=== PATIENT | male | born 1980 | race American Indian/Alaskan Native ===

== ENCOUNTER 2020-10-27 10:43 | Emergency (ER) | payer SELFPAY ==
[2020-10-27 11:20] VITALS: BP 130/78
--- NOTE | 2020-10-27 11:55 | Emergency Department Report ---
ED Abdominal Pain HPI - General Chief Complaint: Abdominal Pain Stated Complaint: ABD PAIN/LOW BACK PAIN Time Seen by Provider: 10/27/20 11:26 Source: patient Mode of arrival: Ambulatory Limitations: No Limitations - History of Present Illness Initial Comments: pt is a 40 yo male who presents to the ED with c/o lower abd discomfort and lower back discomfort for a month. he states that occasionally the pain radiates to his legs and his left testicle. he denies any pain currently. he states he has been having constipation and has been taking laxatives with relief. he denies any fever, n/v/d, dysuria, urinary rentention, urinary symptoms, penile discharge, swelling in the testicles, blood in the stool. no pmhx. no allergies to meds. has not seen anyone for this complaint. - Related Data Previous Rx's Medication Instructions Recorded Last Taken Type Famotidine [Pepcid] 40 mg PO QHS #14 tablet 10/27/20 Unknown Rx Mag Hydrox/Aluminum Hyd/Simeth 10 ml PO QID #1 bottle 10/27/20 Unknown Rx [Maalox Advanced Suspension] Naproxen [EC-Naprosyn] 500 mg PO BID PRN #20 tablet. 10/27/20 Unknown Rx Allergies Allergy/AdvReac Type Severity Reaction Status Date / Time No Known Allergies Allergy Unverified 10/27/20 11:19 ED Review of Systems ROS: Stated complaint: ABD PAIN/LOW BACK PAIN Other details as noted in HPI Comment: All other systems reviewed and negative ED Past Medical Hx - Past Medical History Previous Medical History?: No - Surgical History Past Surgical History?: No - Medications Home Medications: Home Medications Medication Instructions Recorded Confirmed Last Taken Type Famotidine [Pepcid] 40 mg PO QHS #14 tablet 10/27/20 Unknown Rx Mag Hydrox/Aluminum Hyd/Simeth 10 ml PO QID #1 bottle 10/27/20 Unknown Rx [Maalox Advanced Suspension] Naproxen [EC-Naprosyn] 500 mg PO BID PRN #20 tablet. 10/27/20 Unknown Rx ED Physical Exam - General Limitations: No Limitations General appearance: alert, in no apparent distress - Head Head exam: Present: atraumatic, normocephalic - Eye Eye exam: Present: normal appearance - ENT ENT exam: Present: mucous membranes moist - Respiratory Respiratory exam: Present: normal lung sounds bilaterally. Absent: respiratory distress, wheezes, rales, rhonchi, stridor, chest wall tenderness, accessory muscle use, decreased breath sounds, prolonged expiratory - Cardiovascular Cardiovascular Exam: Present: regular rate, normal rhythm, normal heart sounds. Absent: systolic murmur, diastolic murmur, rubs, gallop - GI/Abdominal GI/Abdominal exam: Present: soft, normal bowel sounds. 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 Absent: testicular tenderness, urethral discharge, scrotal swelling - Back Exam Back exam: Present: normal inspection, full ROM. Absent: CVA tenderness (R), CVA tenderness (L), paraspinal tenderness, vertebral tenderness - Neurological Exam Neurological exam: Present: alert, oriented X3 - Psychiatric Psychiatric exam: Present: normal affect, normal mood - Skin Skin exam: Present: warm, dry, intact ED Course Vital Signs 10/27/20 11:20 Temperature 98.1 F Pulse Rate 64 Respiratory 16 Rate Blood Pressure 130/78 [Right] O2 Sat by Pulse 100 Oximetry ED Medical Decision Making - Lab Data Result diagrams: 10/27/20 12:22 10/27/20 12:22 Lab Results 10/27/20 10/27/20 10/27/20 Range/Units 12:22 12:22 12:51 WBC 6.4 (4.5-11.0) K/mm3 RBC 4.68 (3.65-5.03) M/mm3 Hgb 14.7 (11.8-15.2) gm/dl Hct 43.7 (35.5-45.6) % MCV 94 (84-94) fl MCH 32 (28-32) pg MCHC 34 (32-34) % RDW 13.5 (13.2-15.2) % Plt Count 255 (140-440) K/mm3 Lymph % (Auto) 48.1 H (13.4-35.0) % Dane % (Auto) 8.6 H (0.0-7.3) % Eos % (Auto) 5.7 H (0.0-4.3) % Baso % (Auto) 1.1 (0.0-1.8) % Lymph # (Auto) 3.1 (1.2-5.4) K/mm3 Dane # (Auto) 0.6 (0.0-0.8) K/mm3 Eos # (Auto) 0.4 (0.0-0.4) K/mm3 Baso # (Auto) 0.1 (0.0-0.1) K/mm3 Seg Neutrophils % 36.5 L (40.0-70.0) % Seg Neutrophils # 2.3 (1.8-7.7) K/mm3 Sodium 138 (137-145) mmol/L Potassium 3.8 (3.6-5.0) mmol/L Chloride 102.0 (98-107) mmol/L Carbon Dioxide 29 (22-30) mmol/L Anion Gap 11 mmol/L BUN 8 L (9-20) mg/dL Creatinine 0.8 (0.8-1.3) mg/dL Estimated GFR > 60 ml/min BUN/Creatinine Ratio 10 % Glucose 96 (75-100) mg/dL Calcium 9.1 (8.4-10.2) mg/dL Total Bilirubin 0.30 (0.1-1.2) mg/dL AST 14 (5-40) units/L ALT 14 (7-56) units/L Alkaline Phosphatase 56 (35-129) units/L Total Protein 6.8 (6.3-8.2) g/dL Albumin 4.3 (3.9-5) g/dL Albumin/Globulin Ratio 1.7 % Lipase 74 H (13-60) units/L Urine Color Yellow (Yellow) Urine Turbidity Clear (Clear) Urine pH 6.0 (5.0-7.0) Ur Specific [place] 1.019 (1.003-1.030) Urine Protein <15 mg/dl (Negative) mg/dL Urine Glucose (UA) Neg (Negative) mg/dL Urine Ketones Neg (Negative) mg/dL Urine Blood Neg (Negative) Urine Nitrite Neg (Negative) Urine Bilirubin Neg (Negative) Urine Urobilinogen < 2.0 (<2.0) mg/dL Ur Leukocyte Esterase Neg (Negative) Urine WBC (Auto) 1.0 (0.0-6.0) /HPF Urine RBC (Auto) 2.0 (0.0-6.0) /HPF Urine Mucus Few /HPF - Radiology Data Radiology results: report reviewed Ordering Physician: RICHARD DELANEY Date of Service: 10/27/20 Procedure(s): XR abdomen 2V Accession Number(s): [id number] cc: RICHARD DELANEY Fluoro Time In Minutes: ABDOMEN 2 VIEWS INDICATION / CLINICAL INFORMATION: constipation, pain. COMPARISON: None available. FINDINGS: TUBES / LINES: None. BOWEL GAS PATTERN: No significant abnormality. FREE AIR / EXTRALUMINAL GAS: None seen. ADDITIONAL FINDINGS: No significant additional findings. CHEST: Visualized chest shows no significant abnormality. IMPRESSION: 1. No significant abnormality. Signer Name: Nalini Hooker MD Signed: 10/27/2020 12:54 PM Workstation Name: [id number] Transcribed By: SS Dictated By: NALINI HOOKER Electronically Authenticated By: NALINI HOOKER Signed Date/Time: 10/27/20 125 DD/ 53 TD/TT: - Medical Decision Making pt is a 40 yo male who presents to the ED with c/o lower abd discomfort and lower back discomfort for a month. he states that occasionally the pain radiates to his legs and his left testicle. he denies any pain currently. he states he has been having constipation and has been taking laxatives with relief. he denies any fever, n/v/d, dysuria, urinary rentention, urinary symptoms, penile discharge, swelling in the testicles, blood in the stool. no pmhx. no allergies to meds. has not seen anyone for this complaint. vitals are normal. 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 Labs are stable. UA is within normal limits. Abdominal x-ray 1. No significant abnormality. Symptoms could be related to gas and gas pain. He states that the pain does move around. He states he has had increased gas. Do not suspect acute emergent intra-abdominal pathology, he has had symptoms for 1 month, he has no fever, no leukocytosis, labs are stable, he has no abdominal tenderness on exam. Patient given prescription for Pepcid, Maalox, naproxen. Advised patient please take medication as prescribed. increase your water intake. follow up with a primary c are doctor. follow up with a GI doctor. return to the emergency room for any new or worsening symptoms. Critical care attestation.: If time is entered above; I have spent that time in minutes in the direct care of this critically ill patient, excluding procedure time. ED Disposition Clinical Impression: Abdominal pain Qualifiers: Abdominal location: generalized Qualified Code(s): R10.84 - Generalized abdominal pain Low back pain Qualifiers: Chronicity: acute Back pain laterality: bilateral Sciatica presence: without sciatica Qualified Code(s): M54.5 - Low back pain Disposition: TO HOME OR SELFCARE Is pt being admited?: No Does the pt Need Aspirin: No Condition: Stable Instructions: Abdominal Pain, Adult, Acute Back Pain, Adult Additional Instructions: please take medication as prescribed. increase your water intake. follow up with a primary care doctor. follow up with a GI doctor. return to the emergency room for any new or worsening symptoms. Prescriptions: Famotidine [Pepcid] 40 mg PO QHS #14 tablet Naproxen [EC-Naprosyn] 500 mg PO BID PRN #20 tablet.dr KEYES Reason: back pain Mag Hydrox/Aluminum Hyd/Simeth [Maalox Advanced Suspension] 10 ml PO QID #1 bottle Referrals: PRIMARY CAREMD [Primary Care Provider] - 3-5 Days COREY THORNTON MD [Staff Physician] - 3-5 Days [facility] [Provider Group] - 3-5 Days [facility] [Provider Group] - 3-5 Days Time of Disposition: 13:41 Print Language: URDU
[2020-10-27 12:42] LABS: Basophils # (Auto) 0.1 K/mm3 (0.0-0.1); Basophils % (Auto) 1.1 % (0.0-1.8); Eosinophils # (Auto) 0.4 K/mm3 (0.0-0.4); Eosinophils % (Auto) 5.7 % (0.0-4.3); Hematocrit 43.7 % (35.5-45.6); Hemoglobin 14.7 gm/dl (11.8-15.2); Lymphocytes # (Auto) 3.1 K/mm3 (1.2-5.4); Lymphocytes % (Auto) 48.1 % (13.4-35.0); Mean Corpuscular HGB Conc 34 % (32-34); Mean Corpuscular Volume 94 fl (84-94); Monocytes # (Auto) 0.6 K/mm3 (0.0-0.8); Monocytes % (Auto) 8.6 % (0.0-7.3); Platelet Count 255 K/mm3 (140-440); Red Blood Count 4.68 M/mm3 (3.65-5.03); Red Cell Distribution Width 13.5 % (13.2-15.2)
--- NOTE | 2020-10-27 12:59 | XRay Report ---
ABDOMEN 2 VIEWS INDICATION / CLINICAL INFORMATION: constipation, pain. COMPARISON: None available. FINDINGS: TUBES / LINES: None. BOWEL GAS PATTERN: No significant abnormality. FREE AIR / EXTRALUMINAL GAS: None seen. ADDITIONAL FINDINGS: No significant additional findings. CHEST: Visualized chest shows no significant abnormality. IMPRESSION: 1. No significant abnormality. Signer Name: Cesar Hooker MD Signed: 10/27/2020 12:54 PM Workstation Name: [id number]
[2020-10-27 13:04] LABS: Bilirubin,Urine NEG (Negative); Blood,Urine NEG (Negative); Color,Urine Yellow (Yellow); Mucus,Urine FEW /HPF; Protein,Urine <15 mg/dL mg/dL (Negative); Urobilinogen,Urine < 2.0 mg/dL (<2.0)
[2020-10-27 13:06] LABS: Alanine Aminotransferase 14 units/L (7-56); Albumin 4.3 g/dL (3.9-5); BUN/Creatinine Ratio 10; Blood Urea Nitrogen 8 mg/dL (9-20); Calcium 9.1 mg/dL (8.4-10.2); Hemolysis Index 4
== END 2020-10-27 13:53 | disposition home or self-care (01) ==
LOC: ED 10:43
DX: R10.30 Lower abdominal pain, unspecified (principal); M54.5 Low back pain; Z79.899 Other long term (current) drug therapy
CPT/HCPCS: 36415; 74019; 80053; 81001; 83690; 85025; 99283